=== PATIENT | male | born 1960 | race Caucasian/White ===

== ENCOUNTER 2017-08-26 03:11 | Emergency (ER) | payer OTHER ==
[~2017-08-26] VITALS: Ht 180.3 cm; Wt 99.8 kg
[~2017-08-26 03:11] MED LIST: LISINOPRIL20 MG PO; NORCO 5-325 TA1 EACH PO; OXYCODONE HCL15 MG PO
[2017-08-26] MEDS ORDERED: SILVADENE20 GM TOP (04:02)
[2017-08-26] MEDS ORDERED: ACETAMINOPHEN-1 EAC1 PO (04:02)
== END 2017-08-26 04:29 | disposition home or self-care (01) ==
LOC: ED 03:11
DX: L55.1 Sunburn of second degree (principal); Z91.040 Latex allergy status; Z79.899 Other long term (current) drug therapy; X32.XXXA Exposure to sunlight, initial encounter
CPT/HCPCS: 16000; 99282

== ENCOUNTER 2018-07-17 15:41 | Emergency (ER) | payer OTHER ==
[~2018-07-17] VITALS: Ht 182.9 cm; Wt 99.8 kg
--- OUTSIDE RECORDS SUMMARY | ~2018-07-17 | XMS | Encounter Summary ---
Demographics + + + | Address | [address] | | | [place] [address] | + + + | Home Phone | | + + + | Preferred Language | Unknown | + + + | Marital Status | Single | + + + | Buddhism Affiliation | Unknown | + + + | Race | White | + + + | Ethnic Group | Not or | + + + Author + + + | Author | [facility] | + + + | Organization | [facility] | + + + | Address | Unknown | + + + | Phone | Unavailable | + + + Support + + +---------+ + | Name | Relationship | Address | Phone | + + +---------+ + | Amy iWtt | ECON | Unknown | | + + +---------+ + Care Team Providers + +------+ + | Care Internal Wholesaler Name | Role | Phone | + +------+ + PCP | Unavailable | + +------+ + Reason for Visit +--------+ + | Reason | Comments | +--------+ + | Other | Cervical Radulcopathy | +--------+ + Encounter Details +--------+ + + + + | Date | Type | Department | Care Team | Description | +--------+ + + + + | 05/01/ | Emergency | [facility] Emergency | | | | 2015 | | Department [address] | | | | | | [address] | | | | | | [facility] | | | | | | [place] [address] | | | | | | [phone] | | | +--------+ + + + + Social History + +-------+ +--------+------+ | Tobacco Use | Types | Packs/Day | Years | Date | | | | | Used | | + +-------+ +--------+------+ | Never Assessed | | | | | + +-------+ +--------+------+ + + + | Sex Assigned at | Date Recorded | | | | + + + | Not on file | | + + + + + + + | Job Start Date | Occupation | Industry | + + + + | Not on file | Not on file | Not on file | + + + + + + + + | Travel History | Travel Start | Travel End | + + + + + + | No recent travel history available. | + + documented as of this encounter Plan of Treatment Not on filedocumented as of this encounter Visit Diagnoses Not on filedocumented in this encounter"
--- OUTSIDE RECORDS SUMMARY | ~2018-07-17 | XMS | Clinical Summary ---
Demographics + + + | Address | [address] | | | [place] [address] | + + + | Home Phone | | + + + | Preferred Language | Unknown | + + + | Marital Status | Single | + + + | Christianity Affiliation | Unknown | + + + | Race | White | + + + | Ethnic Group | Not or | + + + Author + + + | Author | [facility] | + + + | Organization | [facility] | + + + | Address | Unknown | + + + | Phone | Unavailable | + + + Support + + +---------+ + | Name | Relationship | Address | Phone | + + +---------+ + | Amy Witt | ECON | Unknown | | + + +---------+ + Care Team Providers + +------+ + | Care Deliverer Merchandise Name | Role | Phone | + +------+ + PP | Unavailable | + +------+ + Source Comments ARGELIA is fully live on both [facility] and [facility] InPatient.[facility] Allergies Not on File Medications Not on file Active Problems Not on file Social History + +-------+ +--------+------+ | Tobacco [...] recent travel history available. | + + Plan of Treatment Not on file Results Not on filefrom Last 3 Months Insurance + +--------+ +--------+ + +--------+ | Payer | Benefi | Subscriber | Effect | Phone | Address | Type | | | t Plan | ID | eugenio | | | | | | / | | Dates | | | | | | Group | | | | | | + +--------+ +--------+ + +--------+ | [place]ICA[place] | OHP | [id number] | 03/18/19 | [phone] | [address] | [address] | | | PLUS | | [address] | [address] | [id number] | id | | | OPEN | | sent | | [place], [place] | | | | CARD | | | | [id number] | | + +--------+ +--------+ + +--------+ + +--------+ +--------+ + + | Guarantor Name | Accoun | Relation to | Date | Phone | Billing Address | | | t Type | Patient | of | | | | | | | | | | + +--------+ +--------+ + + | Aditya Ledbetter | Person | Self | [birth year] | [address] | | | al/Fam | | 1961 | [phone] | [address] [place] | | | [place] | | | [address] (Home) | [address] | + +--------+ +--------+ + +"
--- OUTSIDE RECORDS SUMMARY | ~2018-07-17 | XMS | Clinical Summary ---
Demographics + + + | Address | [address] | | | [place] [address] | + + + | Home Phone | | + + + | Preferred Language | Unknown | + + + | Marital Status | Single | + + + | Tenriism Affiliation | 1041 | + + + | Race | Unknown | + + + | Ethnic Group | Unknown | + + + Author + + + | Author | [facility] | | | and [place] | + + + | Organization | [facility] | | | and [place] | + + + | Address | Unknown | + + + | Phone | Unavailable | + + + Care Team Providers + +------+ + | Care Feeder Operator Name | Role | Phone | + +------+ + PP | Unavailable | + +------+ + Allergies Not on File Medications Not on [...] recent travel history available. | + + Last Filed Vital Signs + + + + | Vital Sign | Reading | Time Taken | + + + + | Blood Pressure | 135/79 | 05/14/2015 0831 PDT | + + + + | Pulse | - | - | + + + + | Temperature | 36.1 C (97 F) | 05/14/2015830 PDT | + + + + | Respiratory Rate | 16 | 05/14/2015830 PDT | + + + + | Oxygen Saturation | - | - | + + + + | Inhaled Oxygen | - | - | | Concentration | | | + + + + | Weight | 104.9 kg (231 lb 4.2 | 05/14/2015830 PDT | | | oz) | | + + + + | Height | 188 cm (6' 2") | 05/14/2015830 PDT | + + + + | Body Mass Index | 29.69 | 05/14/2015 0831 PDT | + + + + Plan of Treatment + + + + + | Health Maintenance | Due Date | Last Done | Comments | + + + + + | Vaccine: | | | | | Dtap/Tdap/Td (1 - | 2 | | | | Tdap) | | | | + + + + + | Vaccine: Zoster (1 | | | | | of 2) | 3 | | | + + + + + | Vaccine: Influenza | | | | | (Season Ended) | 9 | | | + + + + + Results Not on filefrom Last 3 Months
--- OUTSIDE RECORDS SUMMARY | ~2018-07-17 | XMS | Encounter Summary ---
Demographics + + + | Address | [address] | | | [place] [address] | + + + | Home Phone | | + + + | Preferred Language | Unknown | + + + | Marital Status | Single | + + + | Muslim Affiliation | Unknown | + + + | Race | White | + + + | Ethnic Group | Not or | + + + Author + + + | Author | [facility] | + + + | Organization | [facility] | + + + | Address | Unknown | + + + | Phone | Unavailable | + + + Support + + +---------+ + | Name | Relationship | Address | Phone | + + +---------+ + | Amy Witt | ECON | Unknown | | + + +---------+ + Care Team Providers + +------+ + | Care Authorization Coordinator Name | Role | Phone | + [...] + + | 05/01/ | Emergency | [facility] Emergency | | | | 2015 | | Department [address] | | | | | | [address] | | | | | | [facility] | | | | | | [place] [address] | | | | | | [phone] | | | +--------+ + + + [...]
--- OUTSIDE RECORDS SUMMARY | ~2018-07-17 | XMS | Clinical Summary ---
Demographics + + + | Address | [address] | | | [place] [address] | + + + | Home Phone | | + + + | Preferred Language | Unknown | + + + | Marital Status | Single | + + + | Christianity Affiliation | 1041 | + + + | Race | Unknown | + + + | Ethnic Group | Unknown | + + + Author + + + | Author | [facility] | | | and [place] | + + + | Organization | [facility] | | | and [place] | + + + | Address | Unknown | + + + | Phone | Unavailable | + + + Care Team Providers + +------+ + | Care Digital Media Manager Name | Role | Phone | + [...]
--- OUTSIDE RECORDS SUMMARY | ~2018-07-17 | XMS | Clinical Summary ---
Demographics + + + | Address | [address] | | | [place] [address] | + + + | Home Phone | | + + + | Preferred Language | Unknown | + + + | Marital Status | Single | + + + | Buddhist Affiliation | Unknown | + + + [...] Team Providers + +------+ + | Care Draughtsman Name | Role | Phone | + +------+ + PP | Unavailable | + +------+ + Source Comments ARGELIA is fully live on both [facility] and [facility] InPatient.[facility] Allergies Not on File Medications [...] PLUS | | 16-Pre | 6 | [phone] | id | | | OPEN | | sent | | [place], [place] | | | | CARD | | | | [id number] | | + +--------+ +--------+ + +--------+ [...] meño | | | [address] (Home) | [phone] | + +--------+ +--------+ + +"
[~2018-07-17 15:41] MED LIST changes: +ACETAMINOPHEN-1 EAC1 PO; +CLEOCIN HCL300 MG PO; +SILVADENE20 GM TOP; +ZESTRIL40 MG PO
--- OUTSIDE RECORDS SUMMARY | 2018-07-17 15:44 | XMS ---
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 Care History Medical/Surgical 01/04/2018 [facility] - Patient is currently established with [facility]. If patient is seen in the ED during business hours. Please contact [facility] at [facility]. Care Recommendation: This patient has had 5 or more Emergency Department visits in the last 12 months.\T\nbsp; Patient requires education on the scope and purpose of the ED as an acute care provider not a Primary Care Provider and should not be utilized for chronic conditions.\T\nbsp; These are guidelines and the provider should exercise clinical judgment when providing care. E.D. VISIT COUNT (12 MO.) 3 [facility] TOTAL 3 NOTE: Visits indicate total known visits. ED/UCC VISIT TRACKING (12 MO.) 07/17/2018 15:[address] [facility] [place] TYPE: Emergency COMPLAINT: - VOMITING,BLOOD IN STOOL 01/01/2018 10:55 [facility] [place] TYPE: Emergency COMPLAINT: - POSS INFECTION/ITCHINESS DIAGNOSES: - Essential (primary) hypertension - Cellulitis of left upper limb - Latex allergy status - Other lobsterman (current) drug therapy 08/26/2017 03:12 [facility] [place] TYPE: Emergency COMPLAINT: - L R FOOT SUNBURNS DIAGNOSES: - Latex allergy status - Sunburn of second degree - Exposure to sunlight, initial encounter - Other penitentiary (current) drug therapy INPATIENT VISIT TRACKING (12 MO.) No inpatient visits to display in this time frame [email or web address]
[2018-07-17] MEDS ORDERED: ASPIR-TRIN325 MG PO (15:51)
== END 2018-07-17 19:43 | disposition home or self-care (01) ==
LOC: ED 15:41
DX: K52.9 Noninfective gastroenteritis and colitis, unspecified (principal); I10 Essential (primary) hypertension; Z91.040 Latex allergy status; Z79.899 Other long term (current) drug therapy; Z79.82 Long term (current) use of aspirin
CPT/HCPCS: 74177; 80053; 81001; 83605; 83690; 85025; 99284-25; J2405; J7030